=== PATIENT | male | born 1950 | race Two or more races ===

== ENCOUNTER 2021-07-07 21:44 | Emergency (ER) | payer OTHER ==
[~2021-07-07] VITALS: Ht 172.7 cm; Wt 75.7 kg
[2021-07-07] MEDS ORDERED: ELIQUIS5 MG PO (22:05)
[2021-07-07] MEDS ORDERED: URSODIOL500 MG PO (22:05)
[2021-07-07] MEDS ORDERED: [UNRECOGNIZED DRUG - OTHER] PO (22:05)
[2021-07-07] MEDS ORDERED: IBANDRONATE SO150 MG PO (22:06)
[2021-07-07] MEDS ORDERED: CEVIMELINE HCL30 MG (22:06)
[2021-07-07] MEDS ORDERED: PILOCARPINE HCL5 MG PO (22:06)
[2021-07-07] MEDS ORDERED: PREGABALIN100 MG PO (22:06)
[2021-07-07] MEDS ORDERED: ROSUVASTATIN CA10 MG PO (22:06)
== END 2021-07-08 01:23 | disposition home or self-care (01) ==
LOC: ER 21:44
DX: S00.83XA Contusion of other part of head, initial encounter (principal); S20.213A Contusion of bilateral front wall of thorax, initial encounter; W01.0XXA Fall on same level from slipping, tripping and stumbling without subsequent striking against object, initial encounter; Y92.9 Unspecified place or not applicable; G30.9 Alzheimer's disease, unspecified; F02.80 Dementia in other diseases classified elsewhere, unspecified severity, without behavioral disturbance, psychotic disturbance, mood disturbance, and anxiety; Z79.01 Long term (current) use of anticoagulants

== ENCOUNTER 2024-02-15 10:05 | Inpatient (IN) | payer OTHER ==
[~2024-02-15] VITALS: Ht 172.7 cm; Wt 75.7 kg
[~2024-02-15 10:05] MED LIST: CEVIMELINE HCL30 MG; ELIQUIS5 MG PO; IBANDRONATE SO150 MG PO; PILOCARPINE HCL5 MG PO; PREGABALIN100 MG PO; ROSUVASTATIN CA10 MG PO; URSODIOL500 MG PO; [UNRECOGNIZED DRUG - OTHER] PO
[2024-02-15] MEDS ORDERED: GEMTESA75 MG PO (10:48)
[2024-02-15] MEDS ORDERED: FOLIC ACID1 MG PO (10:49)
[2024-02-15] MEDS ORDERED: 0.9 % SODIUM CHLORIDE 1,000 ML IV STA (12:58)
[2024-02-15 13:31] LABS: ABG PH 7.482 (7.35-7.45)
[2024-02-15 13:32] LABS: ABG PO2 63.7 mmHg (80-100); BASE EXCESS -0.4 mmol/l; BICARBONATE 21.9 mmol/l (23-25); SaO2 93.7 %; Tco2 22.8 mmol/l; allen test SATISFACTORY; o2 21 %; puncture site RADIAL LEFT
[2024-02-15 14:08] LABS: HEMATOCRIT 35.6 % (39.0-48.0); HEMOGLOBIN 12.2 g/dL (13-16.00); MEAN CELL VOLUME 95.4 fL (80.0-100.00); MEAN CORPUSCULAR HEMOGLOBIN 32.6 pg (27.00-32.0); MEAN CORPUSCULAR HGB CONC 34.2 g/dl (32.0-36.0); PLATELET COUNT 177 K/uL (150-450); RED BLOOD COUNT 3.73 M/uL (4.00-6.00); RED CELL DISTRIBUTION WIDTH 14.1 % (11.5-14.5)
[2024-02-15 15:19] LABS: PH,URINE 6.5 (5.0-8.0); URINE APPEARANCE Clear; URINE BACTERIA 22.6 uL (0.0-1933); URINE BILIRRUBIN Negative (NEGATIVE); URINE BLOOD Negative; URINE COLOR Dark Yellow; URINE EPITHELIAL CELLS 20.8 uL (0.0-38.8); URINE GLUCOSE Negative (NEGATIVE); URINE KETONE Trace (NEGATIVE); URINE LEUKOCYTE Trace; URINE NITRATE Negative; URINE PROTEIN Trace (NEGATIVE)
[2024-02-15] MEDS ORDERED: LEVALBUTEROL HCL 1.25 MG/3 ML SOLUTION IH STA (15:26)
[2024-02-15] MEDS ORDERED: BUDESONIDE 0.5 MG/2 ML AMPUL.NEB IH STA (15:27)
[2024-02-15] MEDS ORDERED: METHYLPREDNISOLONE SOD SUCC 125 MG VIAL IV STA (15:28)
[2024-02-15] MEDS ORDERED: HYDROCODONE/CHLORPHEN P-STIREX 5 ML ML PO STA (15:29)
[2024-02-15] MEDS ORDERED: AZITHROMYCIN 500 MG in 0.9 % SODIUM CHLORIDE 250 ML IV STA (15:30)
[2024-02-15 15:42] LABS: URINE WBC 1.3 uL (0.0-23.2)
[2024-02-15 16:04] LABS: ALBUMIN 2.9 gm/dL (3.4-5.0); BILIRUBIN TOTAL 2.49 mg/dL (0.3-1.2); BILIRUBIN,CONJUGATED 1.45 mg/dL (0.0-0.2); BILIRUBIN,UNCONJUGATED 1.04 mg/dL (0.0-0.6); CALCIUM 8.8 mg/dL (8.5-10.1); CREATININE SERUM 1.11 mg/dL (0.70-1.30); GFR 64.76; POTASSIUM 4.38 mEq/L (3.5-5.1); TOTAL PROTEIN 6.9 gm/dL (6.4-8.2)
[2024-02-15] MEDS ORDERED: CEFTRIAXONE SODIUM 2,000 MG VIAL IV ONE (17:00)
[2024-02-15] MEDS ORDERED: IPRATROPIUM BROMIDE 0.5 MG/2.5 ML AMPUL.NEB IH SCH (17:14)
[2024-02-15] MEDS ORDERED: 0.9 % SODIUM CHLORIDE 1,000 ML IV SCH (17:15)
[2024-02-15] MEDS ORDERED: FAMOTIDINE/PF 20 MG in 0.9 % SODIUM CHLORIDE 8 ML IV PUSH SCH (17:18)
[2024-02-15] MEDS ORDERED: ACETAMINOPHEN 500 MG GEL..CAP PO PRN (17:30)
[2024-02-15 20:43] VITALS: BP 133/67; O2SAT 99
[2024-02-15 20:46] VITALS: BP 133/67
[2024-02-15] MEDS ORDERED: GUAIFEN/DEXTROMETHORPHAN/PE 10 ML BLIST.PACK PO SCH (21:00)
[2024-02-15 21:03] LABS: INR 1.08; PARTIAL THROMBOPLASTIN TIME 31.4 SECONDS (22.0-34.0); PROTHROMBIN TIME 11.7 SECONDS (9.0-11.5)
[2024-02-15 23:55] VITALS: BP 116/71; O2SAT 97
[2024-02-16 01:13] VITALS: BP 104/61; O2SAT 97
[2024-02-16] MEDS ORDERED: APIXABAN 2.5 MG TABLET PO SCH (05:00)
[2024-02-16 08:05] VITALS: BP 112/64; O2SAT 93
[2024-02-16] MEDS ORDERED: [UNRECOGNIZED DRUG - OTHER] PO SCH (09:00)
[2024-02-16] MEDS ORDERED: Pregabalin 50 MG CAPSULE PO SCH (09:00)
[2024-02-16] MEDS ORDERED: CEFTRIAXONE SODIUM 2,000 MG in 0.9 % SODIUM CHLORIDE 100 ML IV SCH (09:00)
[2024-02-16] MEDS ORDERED: AZITHROMYCIN 500 MG in 0.9 % SODIUM CHLORIDE 250 ML IV SCH (09:00)
[2024-02-16 18:07] VITALS: BP 127/71; O2SAT 95
[2024-02-17 02:04] VITALS: BP 150/84; O2SAT 96
[2024-02-17 06:42] LABS: ALBUMIN 2.5 gm/dL (3.4-5.0); BILIRUBIN TOTAL 0.69 mg/dL (0.3-1.2); CALCIUM 8.1 mg/dL (8.5-10.1); CREATININE SERUM 0.77 mg/dL (0.70-1.30); GFR 98.76; GLOBULINA 3.3 G/DL (2.4-3.5); MAGNESIUM 2.6 mg/dL (1.8-2.4); PHOSPHOROUS 2.3 mg/dL (2.5-4.9); POTASSIUM 4.88 mEq/L (3.5-5.1); TOTAL PROTEIN 5.8 gm/dL (6.4-8.2)
[2024-02-17 06:48] LABS: HEMATOCRIT 32.1 % (39.0-48.0); MEAN CORPUSCULAR HGB CONC 34.3 g/dl (32.0-36.0); PLATELET COUNT 185 K/uL (150-450); RED BLOOD COUNT 3.35 M/uL (4.00-6.00); RED CELL DISTRIBUTION WIDTH 13.8 % (11.5-14.5)
[2024-02-17 08:22] VITALS: BP 117/71
[2024-02-17] MEDS ORDERED: POTASSIUM PHOS,M-BASIC-D-BASIC 15 MM in 0.9 % SODIUM CHLORIDE 250 ML IV NR (17:30)
[2024-02-17] MEDS ORDERED: RINGERS SOLUTION,LACTATED 1,000 ML IV SCH (17:30)
[2024-02-17 18:31] VITALS: BP 129/70
[2024-02-18 03:01] VITALS: BP 151/76
[2024-02-18 06:46] LABS: HEMATOCRIT 33.3 % (39.0-48.0); HEMOGLOBIN 11.7 g/dL (13-16.00); MEAN CELL VOLUME 94.1 fL (80.0-100.00); MEAN CORPUSCULAR HEMOGLOBIN 33.1 pg (27.00-32.0); MEAN CORPUSCULAR HGB CONC 35.2 g/dl (32.0-36.0); PLATELET COUNT 206 K/uL (150-450); RED BLOOD COUNT 3.54 M/uL (4.00-6.00); RED CELL DISTRIBUTION WIDTH 14.1 % (11.5-14.5)
[2024-02-18 07:25] LABS: ALBUMIN 2.5 gm/dL (3.4-5.0); BILIRUBIN TOTAL 0.7 mg/dL (0.3-1.2); CALCIUM 8.5 mg/dL (8.5-10.1); CREATININE SERUM 0.79 mg/dL (0.70-1.30); GFR 95.88; GLOBULINA 3.2 G/DL (2.4-3.5); POTASSIUM 4.64 mEq/L (3.5-5.1); TOTAL PROTEIN 5.7 gm/dL (6.4-8.2)
[2024-02-18 09:11] VITALS: BP 118/69
[2024-02-18] MEDS ORDERED: LEVOFLOXACIN750 MG PO (15:52)
[2024-02-18] MEDS ORDERED: INTEGRA PLUS C1 EACH PO (15:52)
[2024-02-18] MEDS ORDERED: PANTOPRAZOLE SO20 MG PO (15:53)
[2024-02-18] MEDS ORDERED: INTESTINEX680 M1 PO (15:53)
[2024-02-18] MEDS ORDERED: FAMOtidine 20 MG TABLET PO SCH (17:00)
[2024-02-19] MEDS ORDERED: IRON FUM,PS/FOLIC/BCOMP,C NO.9 1 CAP CAPSULE PO SCH (09:00)
[2024-02-19] MEDS ORDERED: levoFLOXacin 750 MG TABLET PO SCH (09:00)
== END 2024-02-18 17:04 | disposition home or self-care (01) | DRG 871 ==
LOC: ER 10:06 → MEDJ 17:39
PROVIDERS: General Practice; ADMIT Internal Medicine; ATTEND Internal Medicine
PROC: BW24ZZZ Computerized Tomography (CT Scan) of Chest and Abdomen (ICD-10-PCS; principal; 2024-02-15)
PROC: BW21YZZ Computerized Tomography (CT Scan) of Abdomen and Pelvis using Other Contrast (ICD-10-PCS; 2024-02-16)
PROC: BW40ZZZ Ultrasonography of Abdomen (ICD-10-PCS; 2024-02-17)
DX: A41.9 Sepsis, unspecified organism (principal); J18.9 Pneumonia, unspecified organism; D89.813 Graft-versus-host disease, unspecified; E78.5 Hyperlipidemia, unspecified; D64.9 Anemia, unspecified; K80.20 Calculus of gallbladder without cholecystitis without obstruction; Z85.71 Personal history of Hodgkin lymphoma; G62.9 Polyneuropathy, unspecified; Z85.46 Personal history of malignant neoplasm of prostate